=== PATIENT | female | born 1940 | race Caucasian/White ===

== ENCOUNTER → 2016-06-18 | Outpatient (CLI) | payer OTHER ==
--- NOTE | 2016-06-22 10:55 | CPEEG ---
[f rep st] ELECTROENCEPHALOGRAM EEG. DATE OF STUDY: 06/18/2016 DATE OF INTERPRETATION: 06/22/2016. INTERPRETATION: This EEG contains a mild degree of focal slowing over the bitemporal head regions. These findings would be consistent with a mild focal disturbance of cerebral function in these rojelio ons. There was no potentially epileptogenic abnormalities present in the awake or drowsy recordings . REPORT: This EEG contains 9 Hz alpha to the posterior head regions. There was a mild degree of foc al slowing composed of polymorphic theta activity and sparse low-amplitude delta activity over the b itemporal head regions on an intermittent basis. There was no abnormal epileptiform activation at r est, during photic stimulation or hyperventilation. The patient intermittently became drowsy during the study. There was no abnormal activation during drowsiness or during times of arousal. /[id number]/MODL
== END ==
LOC: FCPNEURO 14:10
PROVIDERS: ATTEND Psychiatry & Neurology Neurology
DX: G40.909 Epilepsy, unspecified, not intractable, without status epilepticus (principal)

== ENCOUNTER → 2016-07-29 | Outpatient (CLI) | payer OTHER | LOC: FIMAGING 12:04 | PROVIDERS: ATTEND Physician Assistant Surgical | DX: M51.36 Other intervertebral disc degeneration, lumbar region (principal); Z98.1 Arthrodesis status ==

== ENCOUNTER → 2016-12-29 | Outpatient (CLI) | payer OTHER | LOC: BMCIMAGING 16:14 | PROVIDERS: ATTEND Internal Medicine | DX: S22.080A Wedge compression fracture of T11-T12 vertebra, initial encounter for closed fracture (principal); Z98.1 Arthrodesis status ==

== ENCOUNTER → 2017-02-09 | Outpatient (CLI) | payer OTHER | LOC: FIMAGING 13:33 | PROVIDERS: ATTEND Physician Assistant Surgical | DX: M48.54XA Collapsed vertebra, not elsewhere classified, thoracic region, initial encounter for fracture (principal); G56.02 Carpal tunnel syndrome, left upper limb; M43.16 Spondylolisthesis, lumbar region; Z98.1 Arthrodesis status ==

== ENCOUNTER → 2018-02-01 | Outpatient (CLI) | payer OTHER | LOC: BMCIMAGING 10:44 | PROVIDERS: ATTEND Physician Assistant | DX: M11.261 Other chondrocalcinosis, right knee (principal); M12.861 Other specific arthropathies, not elsewhere classified, right knee ==

== ENCOUNTER 2018-09-13 08:14 | Emergency (ER) | payer OTHER | END 2018-09-13 10:35 | disposition home or self-care (01) ==